=== PATIENT | male | born 1970 | race Caucasian/White ===

== ENCOUNTER → 2020-10-24 | Day surgery (SDC) | payer OTHER ==
[~2020-10-24] VITALS: Ht 165.1 cm; Wt 66.2 kg
[~2020-10-24] MED LIST: NAPROXEN500 MG PO; NORCO 5-325 TA1 EACH PO; ZOFRAN8 MG PO
== END | disposition home or self-care (01) ==
LOC: FAS 06:54
DX: K92.1 Melena (principal); K58.0 Irritable bowel syndrome with diarrhea; F41.9 Anxiety disorder, unspecified; G40.909 Epilepsy, unspecified, not intractable, without status epilepticus; F17.200 Nicotine dependence, unspecified, uncomplicated; Z98.84 Bariatric surgery status; Z79.899 Other long term (current) drug therapy
CPT/HCPCS: J2250; J2704; J7120

== ENCOUNTER 2021-04-29 11:09 | Emergency (ER) | payer OTHER ==
[2021-04-29 12:03] LABS: BASOPHIL 0.5 % (0-2); EOSINOPHIL 0.7 % (0-5); HCT 44.9 % (42.0-52.0); HGB 14.9 g/dl (13.2-18.0); LYMPHOCYTE 7.5 % (15-48); MCH 29.9 pg (25.0-31.0); MCHC 33.2 g/dL (32.0-36.0); MCV 90.2 fL (78.0-100.0); MONOCYTE 12.6 % (0-12); MPV 9.1 fL (6.0-9.5); NEUTROPHIL 78.2 % (41-80); NRBC 0; PLT 306 K/uL (150-400); RBC 4.98 M/uL (4.70-6.00); RDW 12.6 % (11.5-14.0); WBC 13.1 K/uL (4.0-10.5)
[2021-04-29 12:14] LABS: MONOSPOT (MONONUCLEOSIS) NEGATIVE (NEGATIVE)
[2021-04-29 12:26] LABS: LACTIC ACID 1.4 mmol/L (0.4-1.9)
[2021-04-29 12:34] LABS: CORONAVIRUS 2019 SARS-COV-2 NEGATIVE (NEGATIVE); INFLUENZA A NAA NEGATIVE (NEGATIVE)
[2021-04-29 12:45] LABS: BILIRUBIN - TOTAL 0.4 mg/dL (0.2-1.0); BUN/CREAT RATIO (CALC) 7.3 RATIO; CREATININE 0.96 mg/dL (0.67-1.17); GLOBULIN (CALCULATION) 3.7 g/dL; POTASSIUM 4.6 mmol/L (3.5-5.1); TOTAL PROTEIN 7.7 g/dL (6.4-8.2)
[2021-04-29] MEDS ORDERED: AUGMENTIN 875-1 EACH PO (13:57)
[2021-04-29] MEDS ORDERED: AZITHROMYCIN250 MG PO (14:04)
== END 2021-04-29 14:15 | disposition home or self-care (01) ==
LOC: FER 11:09
PROVIDERS: Internal Medicine
DX: J32.9 Chronic sinusitis, unspecified (principal); B96.89 Other specified bacterial agents as the cause of diseases classified elsewhere; H66.93 Otitis media, unspecified, bilateral; Z20.822 Contact with and (suspected) exposure to COVID-19
CPT/HCPCS: 36415; 70491; 71275; 80053; 83605; 84145; 85025; 86308; 87040; 87880; J2543; J7030; Q9967; U0002